=== PATIENT | male | born 1940 | race African-American/Black ===

== ENCOUNTER 2020-03-30 11:42 | Inpatient (IN) | payer MEDICARE ==
[2020-03-30 12:47] LABS: #Lymphocytes 0.6 thou/uL (1.20-3.40); #Monocytes 0.5 thou/uL (0.11-0.59); #Neutrophils 7.5 thou/uL (1.40-6.50); %Basophils 0.1 % (0.0-1.0); %Eosinophils 0.2 % (0.0-10.0); %Monocytes 5.4 % (0.0-10.0); %Neutrophils 87.4 % (42.0-75.0); Hemoglobin 19.4 g/dL (14.0-18.0); Mean Corpuscular HGB CONC 32.1 g/dL (32.0-36.0); Mean Corpuscular Hemoglobin 27.7 pg (27.0-31.0); Mean Corpuscular Volume 86.3 fL (78.0-98.0); White Blood Cell (WBC) Count 8.6 thou/uL (4.8-10.8)
--- NOTE | 2020-03-30 12:51 | CT ---
CT BRAIN WITHOUT CONTRAST: HISTORY:Altered mental status COMPARISON:None FINDINGS: There are foci of decreased attenuation in the periventricular white matter, consistent with chronic small vessel ischemic disease. No evidence of acute infarct, hemorrhage, midline shift or abnormal extra-axial fluid collections is seen. The ventricular size is appropriate and the basilar cisterns are patent. The bony calvarium is intact. The visualized paranasal sinuses and mastoid air cells are well aerated. IMPRESSION: No CT evidence of acute intracranial process.
[2020-03-30 13:03] LABS: Alcohol Less than 10 mg/dL (Less than 10); Salicylate Less than 8.0 mg/dL (15.0-30.0)
[2020-03-30 13:15] LABS: Acetaminophen Less than 6.0 mcg/mL (10.0-30.0)
[2020-03-30 13:49] LABS: CKMB 2.9 ng/mL (0-6.6)
--- NOTE | 2020-03-30 13:50 | RAD ---
PORTABLE CHEST ONE VIEW: 03/30/20 at 1:09 p.m. HISTORY: Cough. FINDINGS: The heart size is normal. The lungs are well expanded without lobar consolidation, pneumothoraces or pleural effusions. There are degenerative changes in the spine. IMPRESSION: No radiographic evidence of acute cardiopulmonary process. POS: OFF
[2020-03-30] MEDS ORDERED: Vancomycin 1 GM/200 ML BAG ONE (14:05)
[2020-03-30] MEDS ORDERED: Cefepime 2 GM VIAL ONE (14:05)
[2020-03-30 15:23] LABS: Mean Platelet Volume 7.1 fL (7.4-10.4); Platelet Count 97 thou/uL (130-400); RBC Distribution Width 12.5 % (11.5-14.5)
[2020-03-30 15:41] LABS: Lactic Acid 7.2 mmol/L (0.5-2.2)
[2020-03-30] MEDS ORDERED: Acetaminophen 325 MG TAB PO PRN (15:45)
[2020-03-30] MEDS ORDERED: Sodium Chloride 0.9% 1,000 ML IV SCH (15:45)
[2020-03-30 16:07] LABS: SARS-CoV-2 NAA Rapid Test Not Detected (NotDetected)
[2020-03-30 16:29] LABS: Albumin 3.1 g/dL (3.4-4.8)
[2020-03-30 16:30] LABS: Chloride 116 mmol/L (98-107); Potassium 3.7 mmol/L (3.5-5.1); Sodium 153 mmol/L (136-145)
[2020-03-30 16:31] LABS: Calcium 9.2 mg/dL (7.8-10.44); Glucose 140 mg/dL (83-110)
[2020-03-30 16:32] LABS: Globulin 4.1 g/dL (2.4-3.5); Protein, Total 7.2 g/dL (5.8-8.1)
[2020-03-30 16:33] LABS: Anion Gap 25 mmol/L (10-20); Bilirubin, Total 1.2 mg/dL (0.2-1.2); Carbon Dioxide 16 mmol/L (23-31)
[2020-03-30 16:35] LABS: Alkaline Phosphatase 48 U/L (40-110); Calc. Creatinine Clearance 0 mL/min (70-130)
[2020-03-30 16:36] LABS: Bilirubin Negative (Negative); Blood, Urine 3+ (Negative); Clarity Turbid (Clear); Glucose, Urine (Dipstick) Normal (Negative); Ketone, Urine Negative (Negative); Leukocyte 500 Leu/uL (Negative); Nitrite Negative (Negative); Protein, Urine (Dipstick) 20 mg/dL (Neg-Trace); RBC/HPF Greater than 50 HPF (0-3); Specific Gravity, Urine 1.026 (1.002-1.036); Squamous Epithelial None Seen HPF (0-3); Urobilinogen Normal mg/dL (Less than 2); WBC/HPF Greater than 50 HPF (0-3)
[2020-03-30 16:37] LABS: AST (SGOT) 29 U/L (5-34); BUN (Urea Nitrogen) 54 mg/dL (8.4-25.7)
[2020-03-30 16:39] LABS: ALT (SGPT) 18 U/L (8-55)
[2020-03-30 16:41] LABS: Amphetamine Not Detected (NotDetected); Barbiturates Screen Not Detected (NotDetected); Benzodiazepine Screen Not Detected (NotDetected); Cocaine Metabolite Screen Not Detected (NotDetected); Medtox Reader # READER 4; Methadone Not Detected (NotDetected); Methamphetamine Not Detected (NotDetected); Opiate Screen Not Detected (NotDetected); Oxycodone Screen Not Detected (NotDetected); Phencyclidine (PCP) Not Detected (NotDetected); THC/Cannabinoid Screen Detected (NotDetected); Tricyclic Screen Not Detected (NotDetected)
[2020-03-30 16:42] LABS: Medtox Control Line Valid? VALID (VALID)
[2020-03-30 16:45] LABS: Bacteria/HPF None Seen HPF (None Seen)
--- NOTE | 2020-03-30 16:57 | PDOC.HHP ---
Hospitalist HPI - History of Present Illness History of Present Illness: ADMISSION DATE: March 30, 2020 TIME OF ASSESSMENT: 1500 PRIMARY CARE PHYSICIAN: Unknown, city call CHIEF COMPLAINT: Altered mental status, fever, not eating or drinking for several days HPI: Patient is a 80-year-old male with unknown past medical or surgical history. He presents to the ER today for altered mental status and decreased eating and drinking for several days. He is unable to state any history or surgeries and his daughter, Dinah, states she does not know much as he is a very private man. Patient normally lives alone and handles all of his ADLs and is usually oriented x3 per family. The family reports that he has not been eating or drinking for several days and has had recent falls and fever today. His fever was reported as 101 degrees at home with EMS was called. Patient has no memory of EMS coming and is only oriented to person at time of interview. Patient denies any falls, pain anywhere, headache, chest pain, abdominal pain, cough, sick contacts. His daughter denies that he has been around anyone who has been sick. ED COURSE: Vital Signs: Blood pressure 113/73, pulse 92, respiratory rate 22, O2 saturation 100% on room air, temperature 99.6 oral Today in the ER they completed a Covid swab, lab work, portable chest x-ray, and brain CT. The ER administered 2 L normal saline, vancomycin 1 g IV, and cefepime 2 g IV. EMS administered 500 mL normal saline in route. PAST MEDICAL HISTORY: Unknown PAST SURGICAL HISTORY: Unknown SOCIAL HISTORY: Daughter states that patient lives alone and handles all of his ADLs. He is a daily beer drinker, unknown how much patient drinks daily but daughter states it is "a lot". He is a previous cigarette smoker. Daughter denies he uses any illicit drugs. FAMILY HISTORY: Unknown ALLERGIES: No known drug allergies CURRENT MEDICATIONS: Unknown Hospitalist ROS - Review of Systems ROS unobtainable: due to mental status - Exam General Appearance: ill appearing ENT: dry oral mucosa Heart: RRR, no murmur, no gallops, no rubs, normal peripheral pulses Respiratory: CTAB, no wheezes, no rales, no ronchi, normal chest expansion Gastrointestinal: soft, non-tender, non-distended, normal bowel sounds, no palpable masses Extremities: no edema Psychiatric: oriented to person Hospitalist Results - Labs Result Diagrams: 03/30/20 12:19 03/30/20 16:13 Lab results: WBC 8.6 thou/uL (4.8-10.8) 03/30/20 12:19 Hgb 19.4 g/dL (14.0-18.0) H 03/30/20 12:19 Hct 60.4 % (42.0-52.0) H* 03/30/20 12:19 MCV 86.3 fL (78.0-98.0) 03/30/20 12:19 Plt Count 97 thou/uL (130-400) L 03/30/20 12:19 Neutrophils % 87.4 % (42.0-75.0) H 03/30/20 12:19 Sodium 153 mmol/L (136-145) H 03/30/20 16:13 Potassium 3.7 mmol/L (3.5-5.1) 03/30/20 16:13 Chloride 116 mmol/L (98-107) H 03/30/20 16:13 Carbon Dioxide 16 mmol/L (23-31) L 03/30/20 16:13 BUN 54 mg/dL (8.4-25.7) H 03/30/20 16:13 Creatinine 1.82 mg/dL (0.7-1.3) H 03/30/20 16:13 Glucose 140 mg/dL (83-110) H 03/30/20 16:13 Lactic Acid 7.2 mmol/L (0.5-2.2) H* 03/30/20 15:13 Calcium 9.2 mg/dL (7.8-10.44) 03/30/20 16:13 Total Bilirubin 1.2 mg/dL (0.2-1.2) 03/30/20 16:13 AST 29 U/L (5-34) 03/30/20 16:13 ALT 18 U/L (8-55) 03/30/20 16:13 Alkaline Phosphatase 48 U/L (40-110) 03/30/20 16:13 CK-MB (CK-2) 2.9 ng/mL (0-6.6) 03/30/20 12:19 Troponin I 0.476 ng/mL (< 0.028) H* 03/30/20 12:19 Serum Total Protein 7.2 g/dL (5.8-8.1) 03/30/20 16:13 Albumin 3.1 g/dL (3.4-4.8) L 03/30/20 16:13 Urine Ketones Negative mg/dL (Negative) 03/30/20 15:44 Urine Blood 3+ (Negative) A 03/30/20 15:44 Urine Nitrite Negative (Negative) 03/30/20 15:44 Ur Leukocyte Esterase 500 [place]/uL (Negative) A 03/30/20 15:44 Urine RBC Greater than 50 HPF (0-3) A 03/30/20 15:44 Urine WBC Greater than 50 HPF (0-3) A 03/30/20 15:44 Ur Squamous Epith Cells None Seen HPF (0-3) 03/30/20 15:44 Urine Bacteria None Seen HPF (None Seen) 03/30/20 15:44 - EKG Interpretation EKG: ST 1st AVB PVC 108bpm - Radiology Interpretation Chest x-ray Status: image reviewed by me, report reviewed by me Additional Comment: IMPRESSION: No radiographic evidence of acute cardiopulmonary process. CT scan - head Status: report reviewed by me Additional Comment: IMPRESSION: No CT evidence of acute intracranial process. Hospitalist H&P A/P - Problem (1) Metabolic encephalopathy Code(s): G93.41 - METABOLIC ENCEPHALOPATHY Status: Acute (2) Sepsis Code(s): A41.9 - SEPSIS, UNSPECIFIED ORGANISM Status: Acute (3) Elevated troponin Code(s): R77.8 - OTHER SPECIFIED ABNORMALITIES OF PLASMA PROTEINS Status: Acute (4) ZINA (acute kidney injury) Code(s): N17.9 - ACUTE KIDNEY FAILURE, UNSPECIFIED Status: Acute (5) Hypernatremia Code(s): E87.0 - HYPEROSMOLALITY AND HYPERNATREMIA Status: Acute (6) Alcohol use Code(s): Z72.89 - OTHER PROBLEMS RELATED TO LIFESTYLE Status: Chronic - Plan Plan: #Metabolic encephalopathy Patient appears very dehydrated, continue IV fluids at this time Redraw labs in a.m. Neuro checks q4hr Bedside swallow eval ordered prior to taking anything oral PT eval #Sepsis, unknown origin Awaiting UA results Covid swab pending Pending blood and urine cultures #Elevated troponins Patient denies chest pain or shortness of breath Possibly elevated to kidney function and dehydration, continue to monitor Monitor on telemetry #Acute kidney injury Unsure if patient has underlying kidney issues or if this is an acute injury Continue to hydrate we will follow up the labs in a.m. #Hypernatremia Continue IV fluids, change to lactated Ringer's Follow-up with labs in a.m. #Daily alcohol use Monitor for withdrawals- ASE protocol Banana bag ordered CODE STATUS: Full Surrogate decision-maker is his daughter, Yoli [phone] Patient and plan of care have been discussed with
[2020-03-30 16:58] LABS: Critical Call Chem Troponin I S; Troponin I 0.474 ng/mL (< 0.028)
[2020-03-30 16:59] LABS: Critical Call Chem-Lactate D; Lactic Acid 6.1 mmol/L (0.5-2.2)
[2020-03-30] MEDS ORDERED: Thiamine HCl 200 MG/2 ML VIAL IM SCH (20:00)
[2020-03-30 20:22] LABS: Troponin I 0.479 ng/mL (< 0.028)
[2020-03-30] MEDS ORDERED: Aspirin 81 mg Enteric Coated Tablet ONE (20:47)
[2020-03-30] MEDS: Lactated Ringer's 1,000 ML IV SCH (22:42)
[2020-03-30 22:51] VITALS: BMI 15.5
[2020-03-31 00:06] LABS: Lactic Acid 2.9 mmol/L (0.5-2.2)
[2020-03-31 00:11] LABS: Anion Gap 16 mmol/L (10-20); BUN (Urea Nitrogen) 48 mg/dL (8.4-25.7); Calc. Creatinine Clearance 27 mL/min (70-130); Calcium 8.9 mg/dL (7.8-10.44); Carbon Dioxide 19 mmol/L (23-31); Chloride 119 mmol/L (98-107); Glucose 137 mg/dL (83-110); Magnesium 3.2 mg/dL (1.6-2.6); Potassium 3.4 mmol/L (3.5-5.1); Sodium 151 mmol/L (136-145)
[2020-03-31 05:38] LABS: #Lymphocytes 0.8 thou/uL (1.20-3.40); #Monocytes 0.7 thou/uL (0.11-0.59); #Neutrophils 9.1 thou/uL (1.40-6.50); %Basophils 0.2 % (0.0-1.0); %Lymphocytes 7.4 % (21.0-51.0); %Monocytes 6.3 % (0.0-10.0); %Neutrophils 86.1 % (42.0-75.0); Hemoglobin 15.3 g/dL (14.0-18.0); Mean Corpuscular HGB CONC 33.2 g/dL (32.0-36.0); Mean Corpuscular Volume 84.2 fL (78.0-98.0); Mean Platelet Volume 9.7 fL (7.4-10.4); Platelet Count 70 thou/uL (130-400); RBC Distribution Width 11.6 % (11.5-14.5); Red Blood Cell (RBC) Count 5.47 mill/uL (4.70-6.10); White Blood Cell (WBC) Count 10.6 thou/uL (4.8-10.8)
[2020-03-31 05:50] LABS: Anion Gap 15 mmol/L (10-20); BUN (Urea Nitrogen) 43 mg/dL (8.4-25.7); Calc. Creatinine Clearance 32 mL/min (70-130); Calcium 8.6 mg/dL (7.8-10.44); Carbon Dioxide 20 mmol/L (23-31); Chloride 121 mmol/L (98-107); Glucose 107 mg/dL (83-110); Magnesium 2.8 mg/dL (1.6-2.6); Potassium 3.1 mmol/L (3.5-5.1); Sodium 153 mmol/L (136-145)
[2020-03-31] MEDS ORDERED: Magnesium Oxide 400 MG TAB PO SCH (09:00)
[2020-03-31] MEDS: Lactated Ringer's 1,000 ML IV SCH (09:38)
[2020-03-31] MEDS ORDERED: Electrolyte Replacement Protocol 1 EACH FS SCH (10:30)
[2020-03-31] MEDS ORDERED: Lorazepam 2 MG/ML VIAL SLOW IVP PRN (10:33)
[2020-03-31] MEDS ORDERED: Electrolyte Replacement Protocol FS PRN (10:45)
[2020-03-31] MEDS ORDERED: Aspirin 81 mg Enteric Coated Tablet PO SCH (10:45)
[2020-03-31] MEDS ORDERED: Dextrose 5 %-0.45 % NaCl 1,000 ML IV SCH (10:45)
[2020-03-31] MEDS ORDERED: Enoxaparin Sodium 60 MG/0.6 ML SYRINGE SC SCH (10:45)
[2020-03-31] MEDS: Folic Acid 1 MG TAB PO SCH (11:13)
[2020-03-31] MEDS: Multivitamin W/ Minerals 1 TAB PO SCH (11:13)
[2020-03-31] MEDS: Thiamine 100 MG TAB PO SCH (11:14)
[2020-03-31] MEDS ORDERED: Potassium Chloride 20 MEQ TAB PO SCH (11:45)
[2020-03-31] MEDS ORDERED: Potassium Chloride 40 MEQ in Sodium Chloride 0.9% 250 ML 250 ML IVPB SCH (11:45)
[2020-03-31] MEDS ORDERED: Cefepime 2 GM in Sodium Chloride 0.9% 100 ML IVPB SCH (14:00)
[2020-03-31] MEDS ORDERED: Vancomycin HCl 500 MG in Sodium Chloride 0.9% 100 ML IVPB SCH (15:00)
--- NOTE | 2020-03-31 15:35 | PDOC.HOSPP ---
- Subjective Encounter Date: 03/31/20 Encounter Time: 11:30 Subjective: Patient up in bed moves all upper and lower extremities daughter at bedside. However patient will not open his mouth for examination. - Objective Vital Signs & Weight: Vital Signs (12 hours) Temp Pulse Pulse Pulse Resp BP BP 03/31/20 11:48 97.1 F L 89 20 03/31/20 09:05 71 73 116/82 141/83 H 03/31/20 07:48 97.0 F L 72 14 03/31/20 04:00 97.4 F L 77 16 BP Pulse Ox 03/31/20 11:48 124/88 100 03/31/20 09:05 03/31/20 07:48 121/72 96 03/31/20 04:00 113/84 95 Weight Admit Weight 108 lb 9.6 oz Weight 108 lb 9.6 oz I&O: 03/30/20 03/31/20 04/01/20 06:59 06:59 06:59 Intake Total 1100 Balance 1100 Result Diagrams: 03/31/20 05:09 03/31/20 05:09 Hospitalist ROS - Review of Systems Other: Unable to obtain - Medication Medications: Active Medications Generic Name Dose Route Start Last Admin Trade Name Freq PRN Reason Stop Dose Admin Folic Acid 1 mg 03/31/20 09:00 03/31/20 11:13 Folic Acid 1 Mg Tab PO Not Given DAILY GABRIELLE Vancomycin HCl 500 mg/ Sodium 100 mls @ 100 mls/hr 03/31/20 15:00 03/31/20 15:23 Chloride IVPB 100 mls Q24HR@1500 GABRIELLE Administration Cefepime HCl 2 gm/ Sodium 100 mls @ 200 mls/hr 03/31/20 14:00 03/31/20 14:23 Chloride IVPB 100 mls Q24HR@1400 GABRIELLE Administration Dextrose/Sodium Chloride 1,000 mls @ 75 mls/hr 03/31/20 10:45 03/31/20 11:24 D5 1/2 Ns IV 04/01/20 00:04 1,000 mls .[id number] GABRIELLE Administration Acyclovir Sodium 500 mg/ 110 mls @ 110 mls/hr 03/31/20 12:00 03/31/20 12:06 Sodium Chloride IVPB 110 mls 1200,2359 GABRIELLE Administration Potassium Chloride 40 meq/ 270 mls @ 67.5 mls/hr 03/31/20 11:45 03/31/20 12:06 Sodium Chloride IVPB 03/31/20 15:44 270 mls NOW GABRIELLE Administration Iron/Minerals/Multivitamins 1 tab 03/31/20 09:00 03/31/20 11:13 Multivitamin W/ Minerals 1 Tab PO Not Given DAILY GABRIELLE Sodium Chloride 10 ml 03/31/20 09:00 03/31/20 11:14 Flush - Normal Saline 10 Ml Syringe IVF Not Given Q12HR GABRIELLE Thiamine HCl 100 mg 03/31/20 09:00 03/31/20 11:14 Thiamine 100 Mg Tab PO Not Given DAILY GABRIELLE - Exam General - other findings: Patient appears malnourished ENT - other findings: Unable to visualize oral cavity patient is not cooperative Heart: negative: RRR, no murmur, no gallops, no rubs, normal peripheral pulses, irregular, diminshed peripheral pulses, murmur present, II/IV, III/IV Respiratory: negative: CTAB, no wheezes, no rales, no ronchi, normal chest expansion, no tachypnea, normal percussion, rales, rhonchi, tachypneic, wheezes Gastrointestinal: negative: soft, non-tender, non-distended, normal bowel sounds, no palpable masses, no hepatomegaly, no splenomegaly, no bruit, no guarding, no rigidity, tender to palpation, distended, diminished bowl sounds, voluntary guarding Hosp A/P (1) Acute metabolic encephalopathy Code(s): G93.41 - METABOLIC ENCEPHALOPATHY Status: Acute (2) Dehydration Code(s): E86.0 - DEHYDRATION Status: Acute (3) Protein-calorie malnutrition, moderate Code(s): E44.0 - MODERATE PROTEIN-CALORIE MALNUTRITION Status: Acute (4) Atrial flutter Code(s): I48.92 - UNSPECIFIED ATRIAL FLUTTER Status: Acute (5) Elevated troponin Code(s): R77.8 - OTHER SPECIFIED ABNORMALITIES OF PLASMA PROTEINS Status: Acute (6) Hypernatremia Code(s): E87.0 - HYPEROSMOLALITY AND HYPERNATREMIA Status: Acute (7) Alcohol use Code(s): Z72.89 - OTHER PROBLEMS RELATED TO LIFESTYLE Status: Chronic - Plan Patient apparently had a fever when he was with EMS. I spoke with the patient's daughters in length about patient's overall medical issues. Apparently patient is very isolated and drinks about 12-15 beers a day. Per daughters he eats very little and for the past week has not been eating at all. He did fall day prior to coming into the hospital. Patient's daughters denied patient having any fever diarrhea. However complain of a mild nonproductive cough. No organization of aspiration on eating. Patient not very cooperative opening his mouth on examination however per speech there was a pill noted in his mouth. Patient appears very cachectic and malnourished. I will put him on a alcohol withdrawal protocol also we will get an MRI brain. He was noted to have a flutter we will start him on full dose anticoagulation and consult cardiology. We will get an echocardiogram due to elevated troponins most likely demand related. We will continue antibiotics for now. I do not see any signs of meningitis or encephalitis. Urine is not very impressive for infectious etiology nor is the x-ray. However we will continue the antibiotics for the next 24 hours if cultures are negative I will discontinue. I believe this patient has significant metabolic derangements which are causing his current symptoms. We will also change his fluids to D5 half-normal saline. TSH, prolactin and procalcitonin normal. He did have severe lactic acidosis which has improved now this could be definitely multifactorial could definitely be due to dehydration.
[2020-03-31 16:32] LABS: Anion Gap 13 mmol/L (10-20); BUN (Urea Nitrogen) 38 mg/dL (8.4-25.7); Calc. Creatinine Clearance 33 mL/min (70-130); Calcium 8.5 mg/dL (7.8-10.44); Carbon Dioxide 22 mmol/L (23-31); Chloride 123 mmol/L (98-107); Glucose 88 mg/dL (83-110); Potassium 3.8 mmol/L (3.5-5.1); Sodium 154 mmol/L (136-145)
--- NOTE | 2020-03-31 21:31 | CON ---
DATE OF CONSULTATION: 03/31/2020 INDICATION FOR CONSULTATION: This is a 80-year-old gentleman who was admitted with dehydration, possible sepsis, and mental status changes. His troponin I was slightly elevated. We were asked for consultation. He also has a first-degree AV heart block. An EKG has some what appears to be underlying possible flutter, but cannot determine it may just be some atrial tachycardia. HISTORY OF PRESENT ILLNESS: This is a very unfortunate 80-year-old gentleman with no significant past medical history that I am aware of. He does not give any history as this was noted by reviewing the records. Apparently, the hospitalist has already talked to his daughter and says that he has been having some mental status changes. He has been eating or drinking for several days and do not know how long this has been ongoing, how much weight he has lost, but obviously laboratory data does show that he is dehydrated. White blood cell count was 8.6, but sodium was 153, BUN was 43 with a creatinine of 1.31. He also has hematuria and also some bacteria in the blood as well as obvious dehydration. He denied any to me, all he did was he shakes his head to say no or mumble, but I do not hear any information from the patient. I have no indication that he has had any previous cardiac history in the past and echocardiogram is pending at the time of this dictation. PAST MEDICAL HISTORY AND SURGICAL HISTORY: Unknown. SOCIAL HISTORY: Apparently, the patient lives alone. He denied to me that he had any alcohol use by shaking his head saying no, however, he does endorse he has been a significant daily beer drinker. Whether or not he smokes, it is unclear. He previously smoked in the past. He did have cannabis positive drug screen. FAMILY HISTORY: Unknown. ALLERGIES: NONE. PRESENT MEDICATIONS: He has been placed on; 1. Zovirax. 2. Maxipime. 3. IV fluids. 4. Magnesium sulfate. 5. Potassium. 6. Vancomycin. 7. He has been given aspirin 81 mg a day. 8. He is on Lovenox subcu which is DVT prophylaxis. 9. He has been given Folvite. 10. Multivitamins. 11. Potassium. 12. Thiamin. 13. Electrolyte replacements. PHYSICAL EXAMINATION: GENERAL: Reveals a very elderly, thin, ill-appearing gentleman. He does not appear to be in acute distress, but he does not offer of any information as far as his health is concerned or any other social history either. VITAL SIGNS: His blood pressure is 124/88, heart rate is 89 and is regular at this time. He is afebrile. Respiratory rate is 20. HEENT: Shows the head to be normocephalic and atraumatic. Carotid pulses are present without any bruits. CHEST: Clear to auscultation. He does not have very good inspiratory effort, but I do not hear any rales, rhonchi, or wheezing. CARDIOVASCULAR: Reveals a regular rate and rhythm at this time. There were no gross murmurs noted. He has a very soft systolic murmur at the lower sternal border. ABDOMEN: Soft, flat, nontender. Positive bowel sounds are present. EXTREMITIES: Show no clubbing, cyanosis, or edema. Extremities are warm. Pedal pulses are present. NEUROLOGIC: As noted, the patient certainly has some type of mental status changes. He is essentially nonverbal, but does appear to be awake. He is not lethargic. IMPRESSION: 1. Elderly gentleman with first-degree heart block, which may or may not be new. 2. Possible underlying atrial flutter. At this time, he appears to be in a regular rhythm. We will continue to monitor the patient. We will review the echocardiogram when it becomes available. If he has atrial flutter, then we can consider whether or not to undergo ablation if he has any further evidence of arrhythmias or any EKG changes that may indicate ischemia, he may need to undergo stress testing. 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 Again, echocardiogram may indicate further information whether or not he has had a previous myocardial infarction or not. 3. Hypernatremia. He has been given IV fluids at this time. 4. Dehydration. Also has been given IV fluids. 5. History of alcohol abuse. I do not believe an alcohol level was obtained when the patient arrived. 6. Abnormal cardiac enzymes, which certainly could be due to acute renal insufficiency with dehydration or due to diastolic dysfunction or systolic dysfunction or due to sepsis. Any of these could cause a slight increase in the cardiac enzymes. He has no acute ST-segment changes and no further indication that we should intervene at this time. Once the patient becomes more stable, if he is able to give us any history, then he may be a candidate to undergo some type of stress test to rule out evidence for underlying coronary artery disease. At this time, I would agree with the present management. Job ID: [id number]
[2020-03-31] MEDS: Enoxaparin Sodium 60 MG/0.6 ML SYRINGE SC SCH (22:04)
[2020-04-01 03:14] LABS: SARS-CoV-2 MS2 Positive; SARS-CoV-2 N Gene Negative; SARS-CoV-2 S Gene Negative; SARS-CoV-2 by NAA Not Detected (NotDetected); SARS-CoV-2 orf1ab Negative
[2020-04-01 04:48] LABS: #Lymphocytes 0.7 thou/uL (1.20-3.40); #Monocytes 0.4 thou/uL (0.11-0.59); #Neutrophils 5.1 thou/uL (1.40-6.50); %Basophils 0.2 % (0.0-1.0); %Eosinophils 0.2 % (0.0-10.0); %Lymphocytes 11.7 % (21.0-51.0); %Monocytes 6.6 % (0.0-10.0); %Neutrophils 81.4 % (42.0-75.0); Hemoglobin 14.3 g/dL (14.0-18.0); Mean Corpuscular Hemoglobin 26.4 pg (27.0-31.0); Mean Platelet Volume 10.8 fL (7.4-10.4); Platelet Count 61 thou/uL (130-400); Red Blood Cell (RBC) Count 5.42 mill/uL (4.70-6.10); White Blood Cell (WBC) Count 6.3 thou/uL (4.8-10.8)
[2020-04-01 04:54] LABS: Anion Gap 13 mmol/L (10-20); BUN (Urea Nitrogen) 30 mg/dL (8.4-25.7); Calc. Creatinine Clearance 34 mL/min (70-130); Calcium 8.4 mg/dL (7.8-10.44); Carbon Dioxide 21 mmol/L (23-31); Chloride 124 mmol/L (98-107); Glucose 99 mg/dL (83-110); Potassium 4.3 mmol/L (3.5-5.1); Sodium 154 mmol/L (136-145)
--- NOTE | 2020-04-01 09:40 | PDOC.CPN ---
- Subjective Date: 04/01/20 Time: 08:10 Interval history: This morning, his is in SR with 1st degree heart block, hear rate in the 60's- 70's. He is not very responsive, but denies any chest pain, shortness of breath, palpitations, dizziness this morning. When asked about his medical history, he just shook is head "no", he was unable to answer this. - Review of Systems General: reports: weight/appetite/sleep changes (When asked about diet and eating he stated "he is not hungry anymore"). denies: fever/chills, night sweats, fatigue Respiratory: denies: cough, congestion, shortness of breath, exercise intolerance Cardiovascular: denies: chest pain, palpitation, edema, paroxysmal nocturnal dyspnea, orthopnea Musculoskeletal: denies: pain, tenderness, stiffness, swelling, a rthritis/arthralgias Neurological: denies: numbness, syncope, seizure, weakness - Objective Allergies/Adverse Reactions: Allergies Allergy/AdvReac Type Severity Reaction Status Date / Time No Known Allergies Allergy Verified 03/31/20 07:40 Visit Medications: Current Medications Acetaminophen (Acetaminophen 325 Mg Tab) 650 mg PO Q4H PRN PRN Reason: Headache/Fever/Mild Pain (1-3) Aspirin (Aspirin 81 Mg Enteric Coated Tablet) 81 mg PO DAILY [facility] Enoxaparin Sodium (Enoxaparin Sodium 60 Mg/0.6 Ml Syringe) 50 mg SC 0900,2100 [facility] Last Admin: 03/31/20 22:04 Dose: 50 mg Documented by: Folic Acid (Folic Acid 1 Mg Tab) 1 mg PO DAILY [facility] Last Admin: 03/31/20 11:13 Dose: Not Given Documented by: Vancomycin HCl 500 mg/ Sodium (Chloride) 100 mls @ 100 mls/hr IVPB Q24HR@1500 [facility] Last Admin: 03/31/20 15:23 Dose: 100 mls Documented by: Cefepime HCl 2 gm/ Sodium (Chloride) 100 mls @ 200 mls/hr IVPB Q24HR@1400 [facility] Last Admin: 03/31/20 14:23 Dose: 100 mls Documented by: Acyclovir Sodium 500 mg/ (Sodium Chloride) 110 mls @ 110 mls/hr IVPB 1200,2359 [facility] Last Admin: 04/01/20 00:51 Dose: 110 mls Documented by: Iron/Minerals/Multivitamins (Multivitamin W/ Minerals 1 Tab) 1 tab PO DAILY [facility] Last Admin: 03/31/20 11:13 Dose: Not Given Documented by: Lorazepam (Lorazepam 2 Mg/Ml Vial) 1 mg SLOW IVP Q6H PRN PRN Reason: Anxiety/Agitation Miscellaneous Medication (Pharmacy To Dose Vancomycin/Cefepime/Acyclovir) 1 each IVPB PRN PRN PRN Reason: Pharmacy to dose Miscellaneous Medication (Electrolyte Replacement Protocol) 0 each FS ASDIR PRN; Protocol PRN Reason: ELECTROLYTE REPLACEMENT Miscellaneous Medication (Pharmacy To Dose Acyclovir) 1 each IVPB PRN PRN PRN Reason: Pharmacy to dose ACYCLOVIR Sodium Chloride (Flush - Normal Saline 10 Ml Syringe) 10 ml IVF Q12HR [facility] Last Admin: 03/31/20 22:05 Dose: Not Given Documented by: Sodium Chloride (Flush - Normal Saline 10 Ml Syringe) 10 ml IVF PRN PRN PRN Reason: Saline Flush Thiamine HCl (Thiamine 100 Mg Tab) 100 mg PO DAILY [facility] Last Admin: 03/31/20 11:14 Dose: Not Given Documented by: Vital Signs & Weight: Vital Signs Temp Pulse Resp BP BP Pulse Ox 04/01/20 08:10 96.5 F L 61 12 136/77 97 04/01/20 08:05 96 04/01/20 04:00 97.3 F L 75 16 136/77 145/81 H 96 04/01/20 00:00 97.5 F L 66 14 135/85 135/81 96 Admit Weight 108 lb 9.6 oz Weight 108 lb 9.6 oz - Physical Exam General: no apparent distress, cachectic Neck: no JVD/HJR, no bruit Cardiac: regular rate and rhythm Lungs: no wheeze, rales, rhonchi, other (diminished inspiratory respiratory effort.) Neuro: grossly intact Abdomen: active bowel sounds, soft, non-tender, no masses Extremities: no cyanosis, no clubbing, no edema, 2+ Posterior Tibial, 2+ Dorsalis Pedus Skin: clear Musculoskeletal: decreased range of motion (unsure of baseline) - Labs Result Diagrams: 04/01/20 04:16 04/01/20 04:16 Troponin/CKMB CK-MB (CK-2) 2.9 ng/mL (0-6.6) 03/30/20 12:19 Troponin I 0.479 ng/mL (< 0.028) H* 03/30/20 19:44 - EKG Interpretation EKG Method: Telemetry EKG: sinus rhythm (first-degree heart block. HR 60's-70's.) - Assessment/Plan Assessment/Plan: 1. First-degree heart block: patient is a poor historian, unsure if this is new or not. 2. Possible underlying atrial flutter: unsure if this is new or not, will consider consulting EP to consider ablation if he continues to have episodes of atrial flutter or evidence of arrhythmias or any EKG changes that could indicate ischemia. His Echocardiogram revealed to be a technical difficult study with an EF of >65%, suggestive of diastolic dysfunction, trace mitral and tricuspid r egurgitation, and mild-to moderate aortic regurgitation. 3. Dehydration: treated with IV fluids 4. Hypernatremia: also treated with IV fluids 6. Abnormal cardiac enzymes: this could be due to acute renal insufficiency, dehydration, diastolic dysfunction or sepsis. He has no acute ST segment changes and no further indication for intervention at this time. Once the patient becomes more stable and if we can obtain a medical history, he may be a candidate to undergo a stress test to rule out underlying coronary artery disease. At this time, I would continue current management. Pt. seen and eval. by me. No significant change. I agree with the a/P by the STEWARD[employer] DECK. He is not cooperating to eat or drink. He occasionally has short episodes of atrial flutter. No significant tachycardia. 1 AVB. At this time I do not have anything further to oofer the pt. from a cardiac standpoint. He will need pall iative therapy or hospice. I will sign off . If any changes I will be happy to see him again.
[2020-04-01] MEDS: Enoxaparin Sodium 60 MG/0.6 ML SYRINGE SC SCH ×2 (10:03→21:18)
--- NOTE | 2020-04-01 10:40 | MRI ---
MRI OF BRAIN WITHOUT CONTRAST: INDICATION: Slurred speech with mental status change. FINDINGS: Mild to moderate cortical volume loss. Mild chronic ischemic white matter change. Review of diffusion weighted imaging shows numerous foci of restricted diffusion. There are numerous foci seen in both cerebellar hemispheres, slightly more numerous in the right cere bellar hemisphere. These numerous tiny foci all measure in the 3-5 mm range with the larger in the r ight cerebellum measuring up to 1.0 cm. There is a foci seen in the more superior right cerebellum m easuring in the 5 mm range. There are also several tiny focal areas of restricted diffusion in the left occipital lobe with these tiny foci measuring in the 3-5 mm range. There are also tiny subcortical foci seen in both parietal lobes posteriorly. At least one focus of restricted diffusion in the left periventricular white matter posteriorly. Another focus of restricted diffusion in the left frontal lobe cortex more anteriorly superiorly neri uring in the 5 mm range. There are several tiny foci seen superiorly in both frontal lobes near the vertex. IMPRESSION: Numerous tiny foci of restricted diffusion seen in both cerebellar hemispheres and in both cerebral h emispheres as described above. There are numerous foci seen in the cerebellar hemispheres and in the occipital lobe indicating posterior circulation. However, there are also foci seen in the parietal lobes and frontal lobes superiorly which would indicate middle cerebral artery distributions bilatera lly. 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 The presence of bilateral lesions wo uld argue against a unilateral carotid etiology. Assess for other etiologies such as endocarditis. POS: HENRIETTA
[2020-04-01] MEDS: Multivitamin W/ Minerals 1 TAB PO SCH (11:49)
[2020-04-01] MEDS: Thiamine 100 MG TAB PO SCH (11:49)
[2020-04-01] MEDS: Folic Acid 1 MG TAB PO SCH (11:49)
[2020-04-01] MEDS: Aspirin 81 mg Enteric Coated Tablet PO SCH (11:49)
--- NOTE | 2020-04-01 13:56 | ULT ---
BILATERAL CAROTID DUPLEX ULTRASOUND: 04/01/20 HISTORY: Stroke. TECHNIQUE: Crawford scale, color flow and spectral Doppler imaging of the extracranial carotid artery systems is per formed bilaterally. FINDINGS: No significant plaque formation or intimal wall thickening is seen. The peak systolic velocity in the right ICA measures 49 cm/s with an end diastolic velocity of 13 cm and systolic ratio of 0.67. The peak systolic velocity in the left ICA measures 56 cm/s with an end diastolic velocity of 16 cm a nd systolic ratio of 0.69. Flow in both vertebral arteries remains antegrade. IMPRESSION: No evidence of hemodynamically significant stenosis. POS: AH
--- NOTE | 2020-04-01 14:52 | CON ---
NEUROLOGY CONSULTATION DATE OF CONSULTATION: 04/01/2020 REASON FOR CONSULTATION: Altered mental status/stroke. HISTORY OF PRESENT ILLNESS: Mr. Melo is a 80-year-old male with no significant past medical or surgical history and has not been seen doctor or taking any medication, presented to the emergency room, brought by his family on 03/30/2020 because he has stopped drinking and eating for the last several days. History was obtained from review of the medical records. Per records, the patient normally lives alone and handles all his ADLs and is alert and oriented to person, place, and time. Per family, he has stopped eating for the last few days and has recent falls and fever. He was reported to have a fever of 101 when the EMS was called at his home. The patient has no recollection of the event, and he has baseline confusion. In the emergency room, he was started on antibiotics, and head CT was done, which was negative for acute intracranial pathology. PAST MEDICAL HISTORY: No significant past medical history. PAST SURGICAL HISTORY: No significant past surgical history. FAMILY HISTORY: No significant family history. SOCIAL HISTORY: The patient lives alone and takes care of his activities of daily living. He is a daily beer drinker and a previous smoker. He does not use any illicit drugs. He does have cognitive decline since his . ALLERGIES: NO KNOWN DRUG ALLERGIES. CURRENT MEDICATIONS: He does not take any medications at home. Vital Signs & Weight: Vital Signs (12 hours) Temp Pulse Pulse Pulse Resp BP BP 03/31/20 11:48 97.1 F L 89 20 03/31/20 09:05 71 73 116/82 141/83 H 03/31/20 07:48 97.0 F L 72 14 03/31/20 04:00 97.4 F L 77 16 BP Pulse Ox 03/31/20 11:48 124/88 100 03/31/20 09:05 03/31/20 07:48 121/72 96 03/31/20 04:00 113/84 95 Weight Admit Weight 108 lb 9.6 oz Weight 108 lb 9.6 oz I&O: 03/30/20 03/31/20 04/01/20 06:59 06:59 06:59 Intake Total 1100 Balance 1100 Active Medications Generic Name Dose Route Start Last Admin Trade Name Freq PRN Reason Stop Dose Admin Folic Acid 1 mg 03/31/20 09:00 03/31/20 11:13 Folic Acid 1 Mg Tab PO Not Given DAILY GABRIELLE Vancomycin HCl 500 mg/ Sodium 100 mls @ 100 mls/hr 03/31/20 15:00 03/31/20 15:23 Chloride IVPB 100 mls Q24HR@1500 GABRIELLE Administration Cefepime HCl 2 gm/ Sodium 100 mls @ 200 mls/hr 03/31/20 14:00 03/31/20 14:23 Chloride IVPB 100 mls Q24HR@1400 GABRIELLE Administration Dextrose/Sodium Chloride 1,000 mls @ 75 mls/hr 03/31/20 10:45 03/31/20 11:24 D5 1/2 Ns IV 04/01/20 00:04 1,000 mls .[id number] GABRIELLE Administration Acyclovir Sodium 500 mg/ 110 mls @ 110 mls/hr 03/31/20 12:00 03/31/20 12:06 Sodium Chloride IVPB 110 mls 1200,2359 GABRIELLE Administration Potassium Chloride 40 meq/ 270 mls @ 67.5 mls/hr 03/31/20 11:45 03/31/20 12:06 Sodium Chloride IVPB 03/31/20 15:44 270 mls NOW GABRIELLE Administration Iron/Minerals/Multivitamins 1 tab 03/31/20 09:00 03/31/20 11:13 Multivitamin W/ Minerals 1 Tab PO Not Given DAILY GABRIELLE Sodium Chloride 10 ml 03/31/20 09:00 03/31/20 11:14 Flush - Normal Saline 10 Ml Syringe IVF Not Given Q12HR GABRIELLE Thiamine HCl 100 mg 03/31/20 09:00 03/31/20 11:14 Thiamine 100 Mg Tab PO Not Given DAILY GABRIELLE PHYSICAL EXAMINATION: GENERAL APPEARANCE: Ill appearing. CVS: Regular rate and rhythm. CHEST: Clear. ABDOMEN: Soft. NECK: Supple. NEUROLOGIC: Mental status, the patient has baseline confusion. He does not follow commands. He does not maintain eye contact. He is oriented to person only. Cranial nerves; pupils 4 mm, round and reactive to light. Face symmetric. Tongue midline. Moves neck in both directions. Motor, muscle tone and bulk are normal. Minimal spontaneous movement of all 4 extremities seen. Cerebellar did not cooperate with the testing. Sensory, withdraws to nailbed pressure bilaterally. Gait deferred due to patient's safety reason. DATA REVIEWED: Labs were reviewed, which were abnormal. EKG showed arrhythmias and CT scan did not reveal acute intracranial pathology. MRI of the brain showed multiple infarctions in the both cerebellar hemispheres and cerebral white matter. 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 Melo is a 80-year-old male with no significant past medical history, presented with a history of cognitive decline with slurred speech. 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 Telemetry showed arrhythmia. Cardiology is on board. Continue neuro checks every 4 hours. 2D echo showed left ventricular ejection fraction greater than 65%. Carotid Doppler showed no hemodynamically significant stenosis. Start aspirin and statin for secondary stroke prevention. PT/OT/Speech. Continue medical management per primary team and Cardiology. EEG to evaluate for altered mental status to rule out cortical irritability. DVT prophylaxis. GI prophylaxis. Plan discussed with the nursing staff. Thank you for the consult. Job ID: [id number] [facility]
[2020-04-01] MEDS: Dextrose 5 % And 0.9 % NaCl 1,000 ML IV SCH (15:29)
--- NOTE | 2020-04-01 15:49 | PDOC.HOSPP ---
- Subjective Encounter Date: 04/01/20 Encounter Time: 11:15 Subjective: Patient up in bed follows some commands. Spoke with speech therapy who states that patient is at high risk for aspiration with fluids, thick fluids and pured food. - Objective Vital Signs & Weight: Vital Signs (12 hours) Temp Pulse Pulse Resp BP BP BP 04/01/20 12:18 97.6 F 78 16 158/90 H 04/01/20 12:00 158/90 H 04/01/20 09:52 66 136/78 04/01/20 08:10 96.5 F L 61 12 136/77 04/01/20 08:05 04/01/20 08:00 136/77 04/01/20 04:00 97.3 F L 75 16 136/77 145/81 H Pulse Ox 04/01/20 12:18 97 04/01/20 12:00 04/01/20 09:52 04/01/20 08:10 97 04/01/20 08:05 96 04/01/20 08:00 97 04/01/20 04:00 96 Weight Admit Weight 108 lb 9.6 oz Weight 108 lb 9.6 oz I&O: 03/31/20 04/01/20 04/02/20 06:59 06:59 06:59 Intake Total 1100 798 Balance 1100 798 Result Diagrams: 04/01/20 04:16 04/01/20 04:16 Hospitalist ROS - Review of Systems Other: Unable to obtain. - Medication Medications: Active Medications Generic Name Dose Route Start Last Admin Trade Name Freq PRN Reason Stop Dose Admin Aspirin 81 mg 04/01/20 09:00 04/01/20 11:49 Aspirin 81 Mg Enteric Coated Tablet PO Not Given DAILY [facility] Enoxaparin Sodium 50 mg 03/31/20 21:00 04/01/20 10:03 Enoxaparin Sodium 60 Mg/0.6 Ml Syringe SC 50 mg 0900,2100 [facility] Administration Folic Acid 1 mg 03/31/20 09:00 04/01/20 11:49 Folic Acid 1 Mg Tab PO Not Given DAILY [facility] Iron/Minerals/Multivitamins 1 tab 03/31/20 09:00 04/01/20 11:49 Multivitamin W/ Minerals 1 Tab PO Not Given DAILY [facility] Sodium Chloride 10 ml 03/31/20 09:00 03/31/20 22:05 Flush - Normal Saline 10 Ml Syringe IVF Not Given Q12HR GABRIELLE Thiamine HCl 100 mg 03/31/20 09:00 04/01/20 11:49 Thiamine 100 Mg Tab PO Not Given DAILY GABRIELLE - Exam General Appearance: ill appearing Heart: negative: RRR, no murmur, no gallops, no rubs, normal peripheral pulses, irregular, diminshed peripheral pulses, murmur present, II/IV, III/IV Respiratory: negative: CTAB, no wheezes, no rales, no ronchi, normal chest expansion, no tachypnea, normal percussion, rales, rhonchi, tachypneic, wheezes Gastrointestinal: negative: soft, non-tender, non-distended, normal bowel sounds, no palpable masses, no hepatomegaly, no splenomegaly, no bruit, no guarding, no rigidity, tender to palpation, distended, diminished bowl sounds, voluntary guarding Extremities: 1+ LE edema Hosp A/P (1) Acute metabolic encephalopathy Code(s): G93.41 - METABOLIC ENCEPHALOPATHY Status: Acute (2) Dehydration Code(s): E86.0 - DEHYDRATION Status: Acute (3) Protein-calorie malnutrition, moderate Code(s): E44.0 - MODERATE PROTEIN-CALORIE MALNUTRITION Status: Acute (4) Atrial flutter Code(s): I48.92 - UNSPECIFIED ATRIAL FLUTTER Status: Acute (5) Elevated troponin Code(s): R77.8 - OTHER SPECIFIED ABNORMALITIES OF PLASMA PROTEINS Status: Acute (6) Hypernatremia Code(s): E87.0 - HYPEROSMOLALITY AND HYPERNATREMIA Status: Acute (7) Alcohol use Code(s): Z72.89 - OTHER PROBLEMS RELATED TO LIFESTYLE Status: Chronic - Plan Patient apparently had a fever when he was with EMS. I spoke with the patient's daughters in length about patient's overall medical issues. Apparently patient is very isolated and drinks about 12-15 beers a day. Per daughters he eats very little and for the past week has not been eating at all. He did fall day prior to coming into the hospital. Patient's daughters denied patient having any fever diarrhea. However complain of a mild nonproductive cough. No organization of aspiration on eating. Patient not very cooperative opening his mouth on examination however per speech there was a pill noted in his mouth. Patient appears very cachectic and malnourished. I will put him on a alcohol withdrawal protocol also we will get an MRI brain. He was noted to have a flutter we will start him on full dose anticoagulation and consult cardiology. We will get an echocardiogram due to elevated troponins most likely demand related. We will continue antibiotics for now. I do not see any signs of meningitis or encephalitis. Urine is not very impressive for infectious etiology nor is the x-ray. However we will continue the antibiotics for the next 24 hours if cultures are negative I will discontinue. I believe this patient has significant metabolic derangements which are causing his current symptoms. We will also change his fluids to D5 half-normal saline. TSH, prolactin and procalcitonin normal. He did have severe lactic acidosis which has improved now this could be definitely multifactorial could definitely be due to dehydration. 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 Patient unable to swallow or eat anything. I called the patient's daughter and left a message to call me back. He is currently on anticoagulation. Patient has a flutter which most likely is the cause of his embolic strokes. Carotid Dopplers did not show any acute abnormalities. Echo pending. I will get palliative care patient most likely will require hospice his overall outcome is very poor.
--- NOTE | 2020-04-01 16:50 | PDOC.EEG ---
Neurology EEG Report - Report Report: This EEG was performed using 24 channel Crew video digital EEG machine with 24 disc electrodes. This was an extended 2-hours 5 minutes of inpatient video EEG recording. Digital analysis of the EEG was done for Brennon and seizure detection which revealed no abnormalities Background: The posterior background rhythm is not observed. Hyperventilation: Not performed. Photic stimulation. Bioccipital symmetric response seen with photic stimulation. EEG diagnosis: Generalized irregular theta activity seen during the recording. Absence of posterior background rhythm. Clinical interpretation: This EEG is consistent with moderate generalized nonspecific cerebral dysfunction.
[2020-04-01] MEDS: Atorvastatin Calcium 40 MG TAB PO SCH (21:17)
[2020-04-02] MEDS: Dextrose 5 % And 0.9 % NaCl 1,000 ML IV SCH ×2 (04:36→18:16)
[2020-04-02 05:57] LABS: Cardiac Risk 2.7 (Less than 4.5)
[2020-04-02] MEDS: Multivitamin W/ Minerals 1 TAB PO SCH (09:16)
[2020-04-02] MEDS: Folic Acid 1 MG TAB PO SCH (09:16)
[2020-04-02] MEDS: Thiamine 100 MG TAB PO SCH (09:16)
[2020-04-02] MEDS: Aspirin 81 mg Enteric Coated Tablet PO SCH (09:16)
[2020-04-02] MEDS: Enoxaparin Sodium 60 MG/0.6 ML SYRINGE SC SCH ×2 (09:17→21:17)
--- NOTE | 2020-04-02 13:56 | PDOC.NEUPN ---
- Subjective Encounter Date: 04/02/20 Subjective: Patient somnolent this morning and does not follow commands. Significant aphasia on exam. MRI brain positive for acute infarcts and EEG negative for seizure activity. - Objective Vital Signs & Weight: Vital Signs (12 hours) Temp Pulse Pulse Resp BP BP BP 04/02/20 10:03 75 148/85 H 04/02/20 09:44 150/77 H 04/02/20 08:41 97.5 F L 60 18 04/02/20 08:20 148/81 H 04/02/20 03:49 97.8 F 60 16 150/76 H 04/02/20 02:32 BP Pulse Ox 04/02/20 10:03 04/02/20 09:44 04/02/20 08:41 148/81 H 99 04/02/20 08:20 04/02/20 03:49 150/76 H 97 04/02/20 02:32 99 Weight Admit Weight 108 lb 9.6 oz Weight 108 lb 9.6 oz I&O: 04/01/20 04/02/20 04/03/20 06:59 06:59 06:59 Intake Total 798 Balance 798 Result Diagrams: 04/01/20 04:16 04/01/20 04:16 Additional Labs: Accuchecks 04/01/20 21:09 POC Glucose 98 Radiology Reviewed by me: Yes EKG Reviewed by me: Yes ROS - Review of Systems ROS unobtainable: due to mental status (Aphasia) - Medication Medications: Active Medications Generic Name Dose Route Start Last Admin Trade Name Jaylenq PRN Reason Stop Dose Admin Aspirin 81 mg 04/01/20 09:00 04/02/20 09:16 Aspirin 81 Mg Enteric Coated Tablet PO Not Given DAILY GABRIELLE Atorvastatin Calcium 40 mg 04/01/20 21:00 04/01/20 21:17 Atorvastatin Calcium 40 Mg Tab PO Not Given HS GABRIELLE Enoxaparin Sodium 50 mg 03/31/20 21:00 04/02/20 09:17 Enoxaparin Sodium 60 Mg/0.6 Ml Syringe SC 50 mg 0900,2100 GABRIELLE Administration Folic Acid 1 mg 03/31/20 09:00 04/02/20 09:16 Folic Acid 1 Mg Tab PO Not Given DAILY GABRIELLE Dextrose/Sodium Chloride 1,000 mls @ 75 mls/hr 04/01/20 15:00 04/02/20 04:36 D5 0.9% Ns IV 1,000 mls .[id number] GABRIELLE Administration Iron/Minerals/Multivitamins 1 tab 03/31/20 09:00 04/02/20 09:16 Multivitamin W/ Minerals 1 Tab PO Not Given DAILY GABRIELLE Sodium Chloride 10 ml 03/31/20 09:00 04/02/20 09:16 Flush - Normal Saline 10 Ml Syringe IVF Not Given Q12HR GABRIELLE Thiamine HCl 100 mg 03/31/20 09:00 04/02/20 09:16 Thiamine 100 Mg Tab PO Not Given DAILY GABRIELLE - Exam General Appearance: NAD Eye: PERRL ENT: normocephalic atraumatic Neck: supple Respiratory: CTAB Cardiovascular: RRR Gastrointestinal: soft Extremities: no cyanosis Skin: normal turgor Neurological: no new deficit, speech deficit PSYCH: not oriented (Aphasic) Results - Labs Result Diagrams: 04/01/20 04:16 04/01/20 04:16 Lab results: WBC 6.3 thou/uL (4.8-10.8) 04/01/20 04:16 Hgb 14.3 g/dL (14.0-18.0) 04/01/20 04:16 Hct 46.1 % (42.0-52.0) 04/01/20 04:16 MCV 85.0 fL (78.0-98.0) 04/01/20 04:16 Plt Count 61 thou/uL (130-400) L 04/01/20 04:16 Neutrophils % 81.4 % (42.0-75.0) H 04/01/20 04:16 Sodium 154 mmol/L (136-145) H 04/01/20 04:16 Potassium 4.3 mmol/L (3.5-5.1) 04/01/20 04:16 Chloride 124 mmol/L (98-107) H 04/01/20 04:16 Carbon Dioxide 21 mmol/L (23-31) L 04/01/20 04:16 BUN 30 mg/dL (8.4-25.7) H 04/01/20 04:16 Creatinine 1.24 mg/dL (0.7-1.3) 04/01/20 04:16 Glucose 99 mg/dL (83-110) 04/01/20 04:16 Lactic Acid 2.9 mmol/L (0.5-2.2) H 03/30/20 23:40 Calcium 8.4 mg/dL (7.8-10.44) 04/01/20 04:16 Total Bilirubin 1.2 mg/dL (0.2-1.2) 03/30/20 16:13 AST 29 U/L (5-34) 03/30/20 16:13 ALT 18 U/L (8-55) 03/30/20 16:13 Alkaline Phosphatase 48 U/L (40-110) 03/30/20 16:13 Ammonia 22 umol/L (18-72) 03/31/20 11:12 Creatine Kinase 151 U/L (30-200) 03/31/20 11:01 CK-MB (CK-2) 2.9 ng/mL (0-6.6) 03/30/20 12:19 Troponin I 0.479 ng/mL (< 0.028) H* 03/30/20 19:44 B-Natriuretic Peptide 65.2 pg/mL (0-100) 03/30/20 23:40 Serum Total Protein 7.2 g/dL (5.8-8.1) 03/30/20 16:13 Albumin 3.1 g/dL (3.4-4.8) L 03/30/20 16:13 Urine Ketones Negative mg/dL (Negative) 03/30/20 15:44 Urine Blood 3+ (Negative) A 03/30/20 15:44 Urine Nitrite Negative (Negative) 03/30/20 15:44 Ur Leukocyte Esterase 500 [place]/uL (Negative) A 03/30/20 15:44 Urine RBC Greater than 50 HPF (0-3) A 03/30/20 15:44 Urine WBC Greater than 50 HPF (0-3) A 03/30/20 15:44 Ur Squamous Epith Cells None Seen HPF (0-3) 03/30/20 15:44 Urine Bacteria None Seen HPF (None Seen) 03/30/20 15:44 - Radiology Interpretation MRI - head Additional Comment: MRI of the brain reviewed which showed multiple lacunar infarcts in both cerebellar hemispheres and also both cerebral hemispheres. PN A/P (1) Acute CVA (cerebrovascular accident) Code(s): I63.9 - CEREBRAL INFARCTION, UNSPECIFIED Status: Acute (2) ZINA (acute kidney injury) Code(s): N17.9 - ACUTE KIDNEY FAILURE, UNSPECIFIED Status: Acute (3) Acute metabolic encephalopathy Code(s): G93.41 - METABOLIC ENCEPHALOPATHY Status: Acute (4) Atrial flutter Code(s): I48.92 - UNSPECIFIED ATRIAL FLUTTER Status: Acute (5) Dehydration Code(s): E86.0 - DEHYDRATION Status: Acute (6) Hypernatremia Code(s): E87.0 - HYPEROSMOLALITY AND HYPERNATREMIA Status: Acute (7) Protein-calorie malnutrition, moderate Code(s): E44.0 - MODERATE PROTEIN-CALORIE MALNUTRITION Status: Acute (8) Sepsis Code(s): A41.9 - SEPSIS, UNSPECIFIED ORGANISM Status: Acute (9) Alcohol use Code(s): Z72.89 - OTHER PROBLEMS RELATED TO LIFESTYLE Status: Chronic - Plan Daily Plan: plan discussed w/ family, PT/OT, speech therapy, DVT proph w/SCDs Mr. Melo is a 80-year-old male who was consulted because of altered mental status and MRI of the brain was positive for multiple tiny acute infarctions. MRI of the brain reviewed which was positive for multiple tiny acute infarcts in both cerebellar hemispheres in both cerebral hemispheres. Telemetryshowed episodes of atrial flutter which are most likely because of his strokes. Cardiology is on board. 2D echo showed ejection fraction of greater than 65%. Carotid Doppler did not reveal hemodynamically significant stenosis. Continue aspirin and high intensity statin for secondary stroke prevention. Neurochecks every 4 hours. N.p.o. till cleared by speech. PT/OT/speech. EEG reviewed which was negative for seizure activity. Continue medical management per primary team. Consider palliative care consult for discharge planning. Case management on board regarding discharge planning. Plan discussed with the patient family member at bedside and also the nursing staff.
--- NOTE | 2020-04-02 18:29 | PDOC.HOSPP ---
- Subjective Encounter Date: 04/02/20 Encounter Time: 11:15 Subjective: Patient up in bed - Objective Vital Signs & Weight: Vital Signs (12 hours) Temp Pulse Pulse Resp BP BP BP 04/02/20 17:45 98.0 F 60 20 145/79 H 04/02/20 15:18 59 L 04/02/20 10:03 75 148/85 H 04/02/20 09:44 150/77 H 04/02/20 08:41 97.5 F L 60 18 04/02/20 08:20 148/81 H BP BP Pulse Ox 04/02/20 17:45 145/79 H 97 04/02/20 15:18 150/80 H 04/02/20 10:03 04/02/20 09:44 04/02/20 08:41 148/81 H 99 04/02/20 08:20 Weight Admit Weight 108 lb 9.6 oz Weight 108 lb 9.6 oz I&O: 04/01/20 04/02/20 04/03/20 06:59 06:59 06:59 Intake Total 798 Balance 798 Result Diagrams: 04/01/20 04:16 04/03/20 04:33 Additional Labs: Accuchecks 04/01/20 21:09 POC Glucose 98 Hospitalist ROS - Review of Systems Other: unable to obtain - Medication Medications: Active Medications Generic Name Dose Route Start Last Admin Trade Name Freq PRN Reason Stop Dose Admin Aspirin 81 mg 04/01/20 09:00 04/02/20 09:16 Aspirin 81 Mg Enteric Coated Tablet PO Not Given DAILY [facility] Atorvastatin Calcium 40 mg 04/01/20 21:00 04/01/20 21:17 Atorvastatin Calcium 40 Mg Tab PO Not Given HS [facility] Enoxaparin Sodium 50 mg 03/31/20 21:00 04/02/20 09:17 Enoxaparin Sodium 60 Mg/0.6 Ml Syringe SC 50 mg 0900,2100 G[facility]RIELLE Administration Folic Acid 1 mg 03/31/20 09:00 04/02/20 09:16 Folic Acid 1 Mg Tab PO Not Given DAILY [facility] Dextrose/Sodium Chloride 1,000 mls @ 75 mls/hr 04/01/20 15:00 04/02/20 18:16 D5 0.9% Ns IV 1,000 mls .[id number] GABRIELLE Administration Iron/Minerals/Multivitamins 1 tab 03/31/20 09:00 12 09:16 Multivitamin W/ Minerals 1 Tab PO Not Given DAILY [facility] Sodium Chloride 10 ml 03/31/20 09:00 04/02/20 09:16 Flush - Normal Saline 10 Ml Syringe IVF Not Given Q12HR G[facility]RIELLE Thiamine HCl 100 mg 03/31/20 09:00 12 09:16 Thiamine 100 Mg Tab PO Not Given DAILY [facility] - Exam Neck: negative: supple, symmetric, no JVD, no thyromegaly, no lymphadenopathy, no carotid bruit, JVD Heart: negative: RRR, no murmur, no gallops, no rubs, normal peripheral pulses, irregular, diminshed peripheral pulses, murmur present, II/IV, III/IV Respiratory: negative: CTAB, no wheezes, no rales, no ronchi, normal chest expansion, no tachypnea, normal percussion, rales, rhonchi, tachypneic, wheezes Gastrointestinal: negative: soft, non-tender, non-distended, normal bowel sounds, no palpable masses, no hepatomegaly, no splenomegaly, no bruit, no gua rding, no rigidity, tender to palpation, distended, diminished bowl sounds, voluntary guarding Hosp A/P (1) Acute metabolic encephalopathy Code(s): G93.41 - METABOLIC ENCEPHALOPATHY Status: Acute (2) Dehydration Code(s): E86.0 - DEHYDRATION Status: Acute (3) Protein-calorie malnutrition, moderate Code(s): E44.0 - MODERATE PROTEIN-CALORIE MALNUTRITION Status: Acute (4) Atrial flutter Code(s): I48.92 - UNSPECIFIED ATRIAL FLUTTER Status: Acute (5) Elevated troponin Code(s): R77.8 - OTHER SPECIFIED ABNORMALITIES OF PLASMA PROTEINS Status: Acu te (6) Hypernatremia Code(s): E87.0 - HYPEROSMOLALITY AND HYPERNATREMIA Status: Acute (7) Alcohol use Code(s): Z72.89 - OTHER PROBLEMS RELATED TO LIFESTYLE Status: Chronic - Plan Patient apparently had a fever when he was with EMS. I spoke with the patient's daughters in length about patient's overall medical issues. Apparently patient is very isolated and drinks about 12-15 beers a day. Per daughters he eats very little and for the past week has not been eating at all. He did fall day prior to coming into the hospital. Patient's daughters denied patient having any fever diarrhea. However complain of a mild nonproductive cough. No organization of aspiration on eating. Patient not very cooperative opening his mouth on examination however per speech there was a pill noted in his mouth. Patient appears very cachectic and malnourished. I will put him on a alcohol withdrawal protocol also we will get an MRI brain. He was noted to have a flutter we will start him on full dose anticoagulation and consult cardiology. We will get an echocardiogram due to elevated troponins most likely demand related. We will continue antibiotics for now. I do not see any signs of meningitis or encephalitis. Urine is not very impressive for infectious etiology nor is the x-ray. However we will continue the antibiotics for the next 24 hours if cultures are negative I will discontinue. I believe this patient has significant metabolic derangements which are causing his current symptoms. We will also change his fluids to D5 half-normal saline. TSH, prolactin and procalcitonin normal. He did have severe lactic acidosis which has improved now this could be definitely multifactorial could definitely be due to dehydration. 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 Patient unable to swallow or eat anything. I called the patient's daughter and left a message to call me back. He is currently on anticoagulation. Patient has a flutter which most likely is the cause of his embolic strokes. Carotid Dopplers did not show any acute abnormalities. Echo pending. I will get palliative care patient most likely will require hospice his overall outcome is very poor. 04/02 spoke with pt's sister and daughter about pt's overall poor prognosis. Recommended hospice. All questions answered and will place a case managment consult for hospice. pt is not cooperative and is not eating and does not want to participate he keeps says " not right now". I had a long talk with pt's sister who will take him home and on of pt's daughter nakul.
[2020-04-02] MEDS: Atorvastatin Calcium 40 MG TAB PO SCH (21:16)
[2020-04-03 05:27] LABS: Anion Gap 13 mmol/L (10-20); BUN (Urea Nitrogen) 14 mg/dL (8.4-25.7); Calc. Creatinine Clearance 42 mL/min (70-130); Carbon Dioxide 24 mmol/L (23-31); Chloride 125 mmol/L (98-107); Glucose 119 mg/dL (83-110); Sodium 159 mmol/L (136-145)
[2020-04-03] MEDS ORDERED: Potassium Chloride 20 MEQ TAB PO SCH (06:45)
[2020-04-03] MEDS: Potassium Chloride 20 MEQ in Premix Bag 1 BAG IVPB SCH ×2 (07:07→08:55)
[2020-04-03] MEDS: Dextrose 5 % And 0.9 % NaCl 1,000 ML IV SCH (07:11)
[2020-04-03] MEDS: Aspirin 81 mg Enteric Coated Tablet PO SCH (08:46)
[2020-04-03] MEDS: Folic Acid 1 MG TAB PO SCH (08:47)
[2020-04-03] MEDS: Thiamine 100 MG TAB PO SCH (08:47)
[2020-04-03] MEDS: Multivitamin W/ Minerals 1 TAB PO SCH (08:47)
[2020-04-03] MEDS: Dextrose 5% in Water 1,000 ML IV SCH ×2 (08:49→22:21)
[2020-04-03] MEDS: Enoxaparin Sodium 60 MG/0.6 ML SYRINGE SC SCH ×2 (08:50→21:01)
--- NOTE | 2020-04-03 10:23 | PDOC.HOSPP ---
- Subjective Encounter Date: 04/03/20 (f/u stroke) Encounter Time: 10:21 Subjective: RN reports pt asking for ice cream, daughter in room states the same. Pt is high aspiration risk, taking only small amounts of water currently. - Objective Vital Signs & Weight: Vital Signs (12 hours) Temp Pulse Resp BP BP Pulse Ox 04/03/20 08:05 156/75 H 04/03/20 07:30 98.2 F 54 L 20 156/75 H 100 04/03/20 04:52 50 L 128/66 04/03/20 03:58 97.8 F 56 L 14 100 04/02/20 23:54 99.2 F 94 14 98 Weight Admit Weight 108 lb 9.6 oz Weight 108 lb 9.6 oz Result Diagrams: 04/01/20 04:16 04/03/20 04:33 EKG Reviewed by me: Yes (tele - sinus 50-60's and pvc's) Hospitalist ROS - Medication Medications: Active Medications Generic Name Dose Route Start Last Admin Trade Name Jaylenq PRN Reason Stop Dose Admin Aspirin 81 mg 04/01/20 09:00 04/03/20 08:46 Aspirin 81 Mg Enteric Coated Tablet PO Not Given DAILY [facility] Atorvastatin Calcium 40 mg 04/01/20 21:00 04/02/20 21:16 Atorvastatin Calcium 40 Mg Tab PO Not Given HS [facility] Enoxaparin Sodium 50 mg 03/31/20 21:00 04/03/20 08:50 Enoxaparin Sodium 60 Mg/0.6 Ml Syringe SC 50 mg 0900,2100 GABRIELLE Administration Folic Acid 1 mg 03/31/20 09:00 04/03/20 08:47 Folic Acid 1 Mg Tab PO Not Given DAILY [facility] Potassium Chloride 20 meq/ 100 mls @ 50 mls/hr 04/03/20 07:00 04/03/20 08:55 Device IVPB 04/03/20 10:59 100 mls Q2H GABRIELLE Administration Dextrose/Water 1,000 mls @ 75 mls/hr 04/03/20 07:45 04/03/20 08:49 D5w IV 1,000 mls .[id number] GABRIELLE Administration Iron/Minerals/Multivitamins 1 tab 03/31/20 09:00 04/03/20 08:47 Multivitamin W/ Minerals 1 Tab PO Not Given DAILY [facility] Sodium Chloride 10 ml 03/31/20 09:00 04/03/20 08:47 Flush - Normal Saline 10 Ml Syringe IVF Not Given Q12HR [facility] Thiamine HCl 100 mg 03/31/20 09:00 12 08:47 Thiamine 100 Mg Tab PO Not Given DAILY [facility] - Exam General Appearance: NAD General - other findings: cachectic male Heart - other findings: distant heart sounds -no audible murmurs Respiratory - other findings: distant lung sounds - no audible w/r/r Gastrointestinal: soft, non-tender, non-distended, normal bowel sounds Extremities: no cyanosis, no clubbing, no edema Psychiatric - other findings: able to say no, did not speak otherwise Hosp A/P (1) Acute CVA (cerebrovascular accident) Code(s): I63.9 - CEREBRAL INFARCTION, UNSPECIFIED Status: Acute (2) Acute metabolic encephalopathy Code(s): G93.41 - METABOLIC ENCEPHALOPATHY Status: Acute (3) Atrial flutter Code(s): I48.92 - UNSPECIFIED ATRIAL FLUTTER Status: Resolved (4) Hypernatremia Code(s): E87.0 - HYPEROSMOLALITY AND HYPERNATREMIA Status: Acute (5) Protein-calorie malnutrition, moderate Code(s): E44.0 - MODERATE PROTEIN-CALORIE MALNUTRITION Status: Chronic (6) Alcohol use Code(s): Z72.89 - OTHER PROBLEMS RELATED TO LIFESTYLE Status: Chronic (7) Hypokalemia Code(s): E87.6 - HYPOKALEMIA Status: Acute - Plan Embolic stroke with pAF - on full anticoagulation - NPO due to high aspiration risk - plan for hospice - anticipate all will be ready tomorrow Hypernatremia - change fluids to D5W - recheck this afternoon for interval change Hypokalemia - replace dvt prophy - full anticoagulation gi prophy - start IV famotidine code status DNAR Anticipate d/c to home tomorrow with hospice reviewed plan of care with patient's daughter and RN/Brent, no questions or further needs at end of eval.
--- NOTE | 2020-04-03 15:19 | EKG ---
Test Reason : ER Blood Pressure : / mmHG Vent. Rate : 108 BPM Atrial Rate : 108 BPM P-R Int : 272 ms QRS Dur : 094 ms QT Int : 480 ms P-R-T Axes : 085 099 063 degrees QTc Int : 643 ms Sinus tachycardia with 1st degree A-V block with frequent , and consecutive Premature ventricular com plexes and Fusion complexes Indeterminate axis Inferior infarct , age undetermined Abnormal ECG Confirmed by FREDRICK KIRK ([id number]), managing editor PATRICA ANGEL ([id number]) on 04/03/2020 3:19:05 PM Referred By: Confirmed By:FREDRICK Esquivel
[2020-04-03 16:45] LABS: Anion Gap 12 mmol/L (10-20); BUN (Urea Nitrogen) 12 mg/dL (8.4-25.7); Calc. Creatinine Clearance 44 mL/min (70-130); Calcium 7.9 mg/dL (7.8-10.44); Carbon Dioxide 22 mmol/L (23-31); Chloride 124 mmol/L (98-107); Glucose 111 mg/dL (83-110); Potassium 3.3 mmol/L (3.5-5.1); Sodium 155 mmol/L (136-145)
[2020-04-03] MEDS ORDERED: Famotidine/PF 20 mg/2ml Vial SLOW IVP SCH (21:00)
[2020-04-03] MEDS: Atorvastatin Calcium 40 MG TAB PO SCH (21:02)
--- NOTE | 2020-04-04 06:40 | PDOC.HOSPP ---
- Subjective Encounter Date: 04/04/20 (f/u embolic stroke) Encounter Time: 06:38 Subjective: No overnight events noted by nursing staff. Pt this morning when asked if he needs anything responds "a thousand dollars". Otherwise says he is fine to most questions. - Objective Vital Signs & Weight: Vital Signs (12 hours) Temp Pulse Resp BP Pulse Ox 04/04/20 04:00 97.3 F L 48 L 18 161/76 H 100 04/04/20 00:00 98.2 F 48 L 18 170/80 H 100 04/03/20 20:00 97.6 F 48 L 14 154/71 H 100 Weight Admit Weight 108 lb 9.6 oz Weight 108 lb 9.6 oz Result Diagrams: 04/01/20 04:16 04/03/20 16:17 EKG Reviewed by me: Yes (tele - sinus tejas 40's with a few brief episodes of pause or block) Hospitalist ROS - Medication Medications: Active Medications Generic Name Dose Route Start Last Admin Trade Name Freq PRN Reason Stop Dose Admin Aspirin 81 mg 04/01/20 09:00 04/03/20 08:46 Aspirin 81 Mg Enteric Coated Tablet PO Not Given DAILY [facility] Atorvastatin Calcium 40 mg 04/01/20 21:00 04/03/20 21:02 Atorvastatin Calcium 40 Mg Tab PO Not Given HS [facility] Enoxaparin Sodium 50 mg 03/31/20 21:00 04/03/20 21:01 Enoxaparin Sodium 60 Mg/0.6 Ml Syringe SC Not Given 0900,2100 G[facility]LE Famotidine 20 mg 04/03/20 21:00 04/03/20 21:01 Famotidine/Pf 20 Mg/2ml Vial SLOW IVP 20 mg HS GABRIELLE Administration Folic Acid 1 mg 03/31/20 09:00 04/03/20 08:47 Folic Acid 1 Mg Tab PO Not Given DAILY [facility] Dextrose/Water 1,000 mls @ 75 mls/hr 04/03/20 07:45 04/03/20 22:21 D5w IV 1,000 mls .[id number] GABRIELLE Administration Iron/Minerals/Multivitamins 1 tab 03/31/20 09:00 04/03/20 08:47 Multivitamin W/ Minerals 1 Tab PO Not Given DAILY [facility] Sodium Chloride 10 ml 03/31/20 09:00 04/03/20 21:03 Flush - Normal Saline 10 Ml Syringe IVF Not Given Q12HR G[facility]ELLE Thiamine HCl 100 mg 03/31/20 09:00 04/03/20 08:47 Thiamine 100 Mg Tab PO Not Given DAILY [facility] - Exam General Appearance: NAD General - other findings: cachectic male Heart - other findings: distant heart sounds - no significant murmurs Respiratory - other findings: distant lung sounds - no significant problems Gastrointestinal: soft, non-tender, normal bowel sounds Extremities: no cyanosis, no clubbing, no edema Hosp A/P (1) Acute CVA (cerebrovascular accident) Code(s): I63.9 - CEREBRAL INFARCTION, UNSPECIFIED Status: Acute (2) Acute metabolic encephalopathy Code(s): G93.41 - METABOLIC ENCEPHALOPATHY Status: Acute (3) Atrial flutter Code(s): I48.92 - UNSPECIFIED ATRIAL FLUTTER Status: Resolved (4) Hypernatremia Code(s): E87.0 - HYPEROSMOLALITY AND HYPERNATREMIA Status: Acute (5) Protein-calorie malnutrition, moderate Code(s): E44.0 - MODERATE PROTEIN-CALORIE MALNUTRITION Status: Chronic (6) Alcohol use Code(s): Z72.89 - OTHER PROBLEMS RELATED TO LIFESTYLE Status: Chronic (7) Hypokalemia Code(s): E87.6 - HYPOKALEMIA Status: Acute - Plan Plan yesterday was home with hospice support for these end of life conditions. Hypernatremia improved yesterday with change in IVF and recheck. As pt is to go home with hospice, there is no indication to recheck this morning. Plan to discontinue all medications at discharge - to have hospice rx any medications the patient will need dvt prophy - full anticoagulation gi prophy - start IV famotidine code status DNAR
[2020-04-04] MEDS ORDERED: Potassium Chloride 20 MEQ TAB PO SCH (06:45)
--- NOTE | 2020-04-04 08:00 | DIS ---
DATE OF ADMISSION: 03/31/2020 DATE OF DISCHARGE: 04/04/2020 CONSULTANTS: Dr. Tony of Neurology and Dr. Moody of Cardiology. DISCHARGE DISPOSITION: Home with hospice support. MEDICATIONS: The patient is not being discharged with any medications, all medications to be prescribed by the hospice facility. FINAL DIAGNOSES: 1. Embolic ischemic stroke. 2. Hypernatremia. 3. Acute metabolic encephalopathy secondary to above. 4. Atrial flutter/paroxysmal atrial fibrillation. 5. Sinus bradycardia. 6. Protein-calorie malnutrition. 7. Hypokalemia, resolved. 8. Thrombocytopenia, uncertain chronicity. SECONDARY DIAGNOSIS: Alcohol abuse. HISTORY OF PRESENT ILLNESS: Mr. Melo is a 80-year-old male, who presented to the emergency room for altered mental status and decreased p.o. intake. All of the history is obtained from the family, who reported for several days, the patient had not been eating or drinking and has been falling and febrile. The patient was admitted for further evaluation. HOSPITAL COURSE: On admission, the patient was hypernatremic, severely dehydrated, and had an acute kidney injury and concern for sepsis. He was hydrated with IV fluids, monitored for alcohol withdrawal, and underwent a stroke evaluation, which found embolic strokes in multiple locations of the cerebrum and cerebellum. The patient has been on full anticoagulation for this while here. The patient's condition has not progressed. He is unsafe to swallow and therefore not taking any p.o. intake. He was noted to have some atrial flutter. In discussion between the hospitalist and the patient's daughter, the patient has an overall poor prognosis. Because of that, Case Management was consulted with a request for hospice care, which has been arranged. The patient is able to say a few words, but continues to repeat the same thing. The patient will be discharged to home today with hospice support. The patient noted to have atrial flutter and was started on full anticoagulation. This is considered the source of the strokes. He has otherwise been in a sinus bradycardia with a rate in the 40s with an occasional brief blocks here. STUDIES PERFORMED: 1. Carotid ultrasound on April 01; no evidence of hemodynamically significant stenosis. 2. Brain MRI on April 01, which showed numerous tiny foci of restricted diffusion in both cerebellar hemispheres and both cerebral hemispheres, including the occipital lobes. The multifocal distributions suggest embolic phenomenon. 3. Echocardiogram performed on 03/31; EF estimated at greater than 65%, suggestive of diastolic dysfunction, mild to moderate aortic regurgitation. 4. Chest x-ray on 03/30; no radiographic evidence of an acute cardiopulmonary process. 5. Brain CT on March 30; no evidence of an acute intracranial process. 6. COVID testing was negative. 7. Urine tox screen was positive for cannabinoids. 8. Urinalysis on admission, 03/30; greater than 50 red blood cells, greater than 50 white blood cells, positive leukocyte esterase. 9. His last basic metabolic panel; 155, 3.3, 124, 22, 12, 0.97, 111. 10. Cholesterol 96, LDL 42, HDL 36, triglycerides 90. 11. B12 level was 1900. 12. The peak sodium level was 159 yesterday. 13. Troponins were 0.474, 0.476. 14. Lactic acid levels were 6.2, 7.2, 6.1 on March 30. 15. CBC initially 8.6, 19.4, 60.4, and 97. 16. CBC on 04/01; 6.3, 14.3, 46.1, and 61. DIET: The patient has a high aspiration risk. Recommend discussion with the hospice facility in terms of what to offer the patient. ACTIVITY: As tolerated. CODE STATUS: DNAR Discussed the plan for hospice care with the patient's daughter yesterday and arrangements being made for today for end of life care. Job ID: [id number] MTDD
[2020-04-04] MEDS: Multivitamin W/ Minerals 1 TAB PO SCH (08:19)
[2020-04-04] MEDS: Aspirin 81 mg Enteric Coated Tablet PO SCH (08:19)
[2020-04-04] MEDS: Folic Acid 1 MG TAB PO SCH (08:19)
[2020-04-04] MEDS: Thiamine 100 MG TAB PO SCH (08:20)
[2020-04-04] MEDS: Enoxaparin Sodium 60 MG/0.6 ML SYRINGE SC SCH (08:22)
[2020-04-04 11:50] VITALS: BP 137/88; TEMP 98.1
[2020-04-04] MEDS: Dextrose 5% in Water 1,000 ML IV SCH (12:54)
--- NOTE | 2020-04-06 04:54 | PQF ---
CLINICAL DOCUMENTATION CLARIFICATION FORM: Dear : Jerrica Resedniz Date / Time: 04/06/20 4061 Please exercise your independent, professional judgment in responding to the clarification form. Clinical indicators are provided on the bottom of this form for your review Please check appropriate box(es) to clarify if the following diagnosis has been ruled in our ruled out: Sepsis [ ] Ruled in diagnosis [ ] Continue to treat [ ] Resolved [ XX ] Ruled out diagnosis [ ] Improving [ ] Cannot rule out diagnosis [ ] Other diagnosis, please specify [ ] Unable to determine Physician Signature: Date/Time: For continuity of documentation, please document condition throughout progress notes and discharge summary. Thank You. To be completed by CDI/Coding staff for physician review: Present Clinical Indicators - Signs / Symptoms / Labs Results and Location in Medical Record [X] WBC 8.6, Plt count 97, Neutrophils 87.4, Lactic acid 6.2 Laboratory 03/30 [X] Blood Culture : No growth in 5 days Microbiology 03/30 [X] BP 126/72, Pulse 81, Resp 20, Temp 98.2 Vital signs 03/30 [X] Altered mental status ED notes p8 03/31 [X] Severe sepsis, AMS, Fever ED notes p8 03/31 [X] Metabolic encephalopathy H&P p4 03/30 [place] [employer] [X] ZINA H&P p4 03/30 [place] [employer] [X] Sepsis of unknown etiology H&P p4 03/30 [place] [employer] [X] urine is not very impressive for infection etiology not is the x-ray HPN p4 04/01 Dr Craft [X] possible sepsis Consult 03/31 Present Risk Factors Results and Location in Medical Record [X] 80 year-old Male H&P p1 03/30 [place] [employer] [X] Former smoker H&P p1 03/30 [place] [employer] [X] Malnutrition HPN p3 04/01 Dr Craft Present Treatments Results and Location in Medical Record [X] IV Cefepime 2 gm JUL 09 [X] IVF Lactated Ringers 1L JUL 09 [X] IV NS 1L JUL 09 [X] IV Vancomycin 500 mg JUL 09 CDS/On Awake Counselor Signature: Nicol Davis Phone #: ext [phone] Date/Time: 04/06/2020 0454 This is a permanent part of the Medical Record [facility]
== END 2020-04-04 13:45 | disposition hospice, home (50) | DRG 64 ==
LOC: ERS 11:42 → ERHOLD 14:21 → INTOOBSV 14:21 → OBSVTOIN 14:21 → 2SE 22:26 → OBSVTOIN 03-31 10:26
PROVIDERS: ADMIT Internal Medicine; ATTEND Family Medicine
DX: I63.443 Cerebral infarction due to embolism of bilateral cerebellar arteries (principal); G93.41 Metabolic encephalopathy; Z68.1 Body mass index [BMI] 19.9 or less, adult; I48.92 Unspecified atrial flutter; N17.9 Acute kidney failure, unspecified; E87.0 Hyperosmolality and hypernatremia; E44.0 Moderate protein-calorie malnutrition; R64 Cachexia; E87.2 Acidosis; Z51.5 Encounter for palliative care; Z66 Do not resuscitate; Z20.828 Contact with and (suspected) exposure to other viral communicable diseases; D69.6 Thrombocytopenia, unspecified; E86.0 Dehydration; F10.10 Alcohol abuse, uncomplicated; I08.3 Combined rheumatic disorders of mitral, aortic and tricuspid valves; R47.81 Slurred speech; R29.708 NIHSS score 8; R00.1 Bradycardia, unspecified; E87.6 Hypokalemia; I48.0 Paroxysmal atrial fibrillation; I44.0 Atrioventricular block, first degree; Z79.899 Other long term (current) drug therapy
CPT/HCPCS: 36415; 36416; 51701; 70450; 70551; 71045; 80048; 80053; 80061; 80306; 80307; 81003; 81015; 82140; 82550; 82553; 82607; 83605; 83735; 83880; 84145; 84146; 84443; 84484; 85025; 87040; 87086; 87635; 93005; 93306; 93880; 94760; 95712; 95816; 95819; 95957; 96365; 96366; 96367; 96372; G0378; J0133; J0692; J1650; J3370; J3411; J3475; J3480; J3490; J7050; S0028; U0002; U0003